=== PATIENT | female | born 1995 | race Caucasian/White ===

== ENCOUNTER → 2019-03-17 | Outpatient (CLI) | payer OTHER ==
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
== END | disposition home or self-care (01) ==
LOC: CT 10:14
PROVIDERS: ATTEND Physician Assistant
DX: T14.90XA Injury, unspecified, initial encounter (principal); R51 Headache; R42 Dizziness and giddiness; V89.2XXA Person injured in unspecified motor-vehicle accident, traffic, initial encounter; Y93.89 Activity, other specified; Y92.488 Other paved roadways as the place of occurrence of the external cause; Y99.8 Other external cause status
CPT/HCPCS: 70450

== ENCOUNTER 2019-08-23 15:07 | Emergency (ER) | payer OTHER ==
[~2019-08-23] VITALS: Ht 170.2 cm; Wt 83.5 kg
[2019-08-23] MEDS ORDERED: IV NORMAL SALINE 1,000ML 1,000 ML IV ONE (15:45)
[2019-08-23] MEDS ORDERED: ONDANSETRON PF 4 MG/2 ML VIAL. IVP ONE (16:00)
[2019-08-23 16:25] LABS: BASO # 0.1 x10^3/uL (0.0-0.2); BASO % 1 % (0-3); EOS # 0.1 x10^3/uL (0.0-0.7); EOS % 1 % (0-3); HEMATOCRIT 42.3 % (36.0-47.0); HEMOGLOBIN 14.2 g/dL (12.0-15.5); LYMPH # 2.5 x10^3/uL (1.0-4.8); LYMPH % 29 % (24-48); MEAN CORPUSCULAR HEMOGLOBIN 29 pg (25-35); MEAN CORPUSCULAR HGB CONC 34 g/dL (31-37); MEAN CORPUSCULAR VOLUME 86 fL (79-100); MONO # 0.6 x10^3/uL (0.0-1.1); MONO % 7 % (0-9); NEUT # 5.2 x10^3uL (1.8-7.7); NEUT % 62 % (31-73); PLATELET COUNT 226 x10^3/uL (140-400); RED CELL DISTRIBUTION WIDTH 13.3 % (11.5-14.5); WHITE BLOOD COUNT 8.5 x10^3/uL (4.0-11.0)
--- NOTE | 2019-08-23 16:29 | PHYS DOC ---
Past History Past Medical History: No Pertinent History Past Surgical History: Appendectomy, Cholecystectomy, Tonsillectomy Smoking: Cigarettes Alcohol Use: None Drug Use: None Adult General Chief Complaint Chief Complaint: DIZZY/LIGHT HEADED HPI HPI 23-year-old female presents with one-day history of dizziness, headache, and nausea with associated sinus pressure. Patient reports now with some right arm "funny feeling ". Denies trauma. Denies fever or chills. Patient reports she thinks she is a few weeks . Denies taking any medication prior to arrival. Review of Systems Review of Systems Constitutional: Denies fever or chills Eyes: Denies redness or eye pain HENT: Denies nasal congestion or sore throat Respiratory: Denies cough or shortness of breath Cardiovascular: Denies chest pain or palpitations GI: Denies abdominal pain or vomiting; reports nausea : Denies dysuria or hematuria Musculoskeletal: Denies back pain or joint pain Integument: Denies rash or skin lesions Neurologic: Reports headache and dizziness; denies focal weakness or sensory changes Complete systems were reviewed and found to be within normal limits, except as documented in this note. Current Medications Current Medications Current Medications Medications (Trade) Dose Ordered Sig/Liseth Start Time Stop Time Status Last Admin Dose Admin Ondansetron HCl (Zofran) 4 mg 1X ONCE 08/23/19 16:00 08/23/19 16:01 DC 08/23/19 16:00 4 MG Sodium Chloride 1,000 ml @ 1,000 mls/hr 1X ONCE 08/23/19 15:45 08/23/19 16:44 08/23/19 15:45 1,000 MLS/HR Allergies Allergies Allergies Coded Allergies Type Severity Reaction Last Updated Verified No Known Drug Allergies 08/23/19 No Physical Exam Physical Exam Constitutional: Well developed, well nourished, no acute distress, non-toxic appearance HENT: Normocephalic, atraumatic, oropharynx moist Eyes: PERRL, EOMI, conjunctiva normal, no discharge, no nystagmus Neck: Normal range of motion, no midline tenderness, supple Cardiovascular: Heart rate normal, regular rhythm Lungs & Thorax: Bilateral breath sounds clear to auscultation, no wheezing Abdomen: Soft, no tenderness Skin: Warm, dry, no erythema, no rash Extremities: No tenderness, ROM intact, no edema Neurologic: Alert and oriented X 3, normal motor function, normal sensory function, no focal deficits noted Psychologic: Affect normal, judgement normal Current Patient Data Vital Signs Vital Signs Date Time Temp Pulse Resp B/P (MAP) Pulse Ox O2 Delivery O2 Flow Rate FiO2 08/23/19 15:21 98.2 80 16 98 Room Air Lab Results Laboratory Tests Test 08/23/19 15:45 POC Urine HCG, Qualitative hcg negative (Negative) EKG EKG @1604 NSR at 75bpm, NO ST elevation, QRS 100ms, QT/QTc 384/431ms Radiology/Procedures Radiology/Procedures [] Course & Med Decision Making Course & Med Decision Making Pertinent Lab studies reviewed. (See chart for details) Neurologically intact patient presents with one-day history of headache with associated nausea and sinus pressure. No trauma. Patient ate febrile. No meningeal signs appreciated. Patient reports concern she might be a "few weeks ". Urine negative. Beta hCG less than 1. Labs obtained and posted to chart. IV fluid hydration provided. EKG stable. Patient stable for discharge with outpatient follow-up with PCP. Discussed findings and plan with patient and family, who acknowledge understanding and agreement. Dragon Disclaimer Dragon Disclaimer This electronic medical record was generated, in whole or in part, using a voice recognition dictation system. Departure Departure: Impression: Primary Impression: Dizziness Additional Impression: Headache Disposition: 01 HOME, SELF-CARE Condition: STABLE Referrals: JENNI WEISS MD (PCP) Patient Instructions: Dizziness, [id number], General Headache Without Cause, Palpitations, Zzit-tp-[id number] Scripts Butalb/Acetaminophen/Caffeine ([id number] 50-325-40) 1 Each Tablet 1 EACH PO Q6HRS PRN for HEADACHE, #14 TAB Prov: ANTONY PHILLIPS DO 08/23/19 Problem Qualifiers Additional Impression: Headache Headache type: unspecified Headache chronicity pattern: acute headache Intractability: not intractable Qualified Codes: R51 - Headache ANTONY PHILLIPS DO Aug 23, 2019 16:29
[2019-08-23 16:34] LABS: BACTERIA,URINE FEW /HPF (0-FEW); BILIRUBIN,URINE NEG (NEG); CLARITY,URINE CLEAR; COLOR,URINE AMBER; GLUCOSE,URINE NEG (NEG); NITRITE,URINE NEG (NEG); RBC,URINE 0 /HPF (0-2); SQUAMOUS EPITHELIAL CELL,UR OCC /LPF; UROBILINOGEN,URINE 0.2 mg/dL (0.2 mg/dL)
[2019-08-23 16:48] LABS: ALBUMIN 4.1 g/dL (3.4-5.0); ALBUMIN/GLOBULIN RATIO 1.1 (1.0-1.7); CALCIUM 9.1 mg/dL (8.5-10.1); CREATININE 0.8 mg/dL (0.6-1.0); GFR 89.7; POTASSIUM 3.6 mmol/L (3.5-5.1); TOTAL BILIRUBIN 0.5 mg/dL (0.2-1.0)
[2019-08-23 16:49] VITALS: BP 113/60
[2019-08-23] MEDS ORDERED: BUTA1TAB23 PO (17:17)
--- NOTE | 2019-08-24 01:56 | EKG ---
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
== END 2019-08-23 17:21 | disposition home or self-care (01) ==
LOC: ER 15:07
DX: R51 Headache (principal); R42 Dizziness and giddiness
CPT/HCPCS: 36415; 80053; 81001; 81025; 83735; 84702; 85025; 93005; 96361; 96374; 99285; J2405; J7030

== ENCOUNTER 2020-05-31 09:56 | Emergency (ER) | payer OTHER ==
[~2020-05-31] VITALS: Ht 170.2 cm; Wt 84.7 kg
[~2020-05-31 09:56] MED LIST: BUTA1TAB23 PO
[2020-05-31] MEDS ORDERED: IV NORMAL SALINE 1,000ML 1,000 ML IV SCH (09:58)
[2020-05-31 10:29] LABS: BASO % 1 % (0-3); EOS % 1 % (0-3); HEMATOCRIT 41.8 % (36.0-47.0); HEMOGLOBIN 14.4 g/dL (12.0-15.5); LYMPH # 1.9 x10^3/uL (1.0-4.8); LYMPH % 38 % (24-48); MEAN CORPUSCULAR HEMOGLOBIN 30 pg (25-35); MEAN CORPUSCULAR HGB CONC 35 g/dL (31-37); MEAN CORPUSCULAR VOLUME 86 fL (79-100); MONO # 0.5 x10^3/uL (0.0-1.1); MONO % 10 % (0-9); NEUT # 2.5 x10^3uL (1.8-7.7); NEUT % 50 % (31-73); PLATELET COUNT 226 x10^3/uL (140-400); RED BLOOD COUNT 4.84 x10^6/uL (3.50-5.40)
--- NOTE | 2020-05-31 10:29 | PHYS DOC ---
Past History Past Medical History: Hypothyroid Past Surgical History: Appendectomy, Cholecystectomy, Tonsillectomy Smoking: Cigarettes Alcohol Use: None Drug Use: None General Adult EDM: Chief Complaint: CHEST PAIN HPI: HPI: 24-year-old female presents via EMS with chest pain and generalized weakness. 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 She then had some left upper abdomen that has central chest discomfort that she describes as a pinching sensation. It was mild in intensity. It has improved. Her biggest concern is the profound fatigue that she was feeling. This has improved somewhat at this time. She is not diabetic. She did not eat breakfast, but she normally does not eat breakfast. She denies fever chills. No recent changes in medications. They are monitoring her thyroid as she has nodules. She does not currently take thyroid medication. Review of Systems: Review of Systems: Constitutional: Fatigue. Denies fever or chills Eyes: Denies change in visual acuity HENT: Denies nasal congestion or sore throat Respiratory: Denies cough or shortness of breath Cardiovascular: Chest pain GI: Denies abdominal pain, nausea, vomiting, bloody stools or diarrhea : Denies dysuria Musculoskeletal: Denies back pain or joint pain Integument: Denies rash Neurologic: Denies headache, focal weakness or sensory changes Endocrine: Denies polyuria or polydipsia Lymphatic: Denies swollen glands Psychiatric: Denies depression or anxiety Heart Score: HEART Score for Chest Pain: HEART Score for Chest Pain Response (Comments) Value History Slighlty/Non-Suspicious 0 ECG Normal 0 Age < 45 0 Risk Factors No Risk Factors 0 Troponin < Normal Limit 0 Total 0 Risk Factors: Risk Factors: DM, Current or recent (<one month) smoker, HTN, HLP, family history of CAD, obesity. Risk Scores: Score 0 - 3: 2.5% MACE over next 6 weeks - Discharge Home Score 4 - 6: 20.3% MACE over next 6 weeks - Admit for Clinical Observation Score 7 - 10: 72.7% MACE over next 6 weeks - Early Invasive Strategies Current Medications: Current Meds: Current Medications Medications (Trade) Dose Ordered Sig/Liseth Start Time Stop Time Status Last Admin Dose Admin Sodium Chloride 1,000 ml @ 1,000 mls/hr Q1H 05/31/20 09:58 05/31/20 10:57 Allergies: Allergies: Allergies Coded Allergies Type Severity Reaction Last Updated Verified No Known Drug Allergies 08/23/19 No Physical Exam: PE: Constitutional: Well developed, well nourished, no acute distress, non-toxic appearance. [] HENT: Normocephalic, atraumatic, bilateral external ears normal, oropharynx moist, no oral exudates, nose normal. [] Eyes: PERRLA, EOMI, conjunctiva normal, no discharge. [] Neck: Normal range of motion, no tenderness, supple, no stridor. [] Cardiovascular: Heart rate regular rhythm, no murmur [] Lungs & Thorax: Bilateral breath sounds clear to auscultation [] Abdomen: Bowel sounds normal, soft, no tenderness, no masses, no pulsatile masses. [] Skin: Warm, dry, no erythema, no rash. [] Back: No tenderness, no CVA tenderness. [] Extremities: No tenderness, no cyanosis, no clubbing, ROM intact, no edema. [] Neurologic: Alert and oriented X 3, normal motor function, normal sensory function, no focal deficits noted. [] Psychologic: Affect normal, judgement normal, mood anxious. [] Current Patient Data: Vital Signs: Vital Signs Date Time Temp Pulse Resp B/P (MAP) Pulse Ox O2 Delivery O2 Flow Rate FiO2 05/31/20 10:00 98.1 66 20 118/72 (87) 97 Room Air EKG: EKG: [] Radiology/Procedures: Radiology/Procedures: [] Impressions: EXAM: Chest, single view. HISTORY: Chest pain. COMPARISON: None. FINDINGS: A frontal view of the chest obtained. There is no infiltrate, pleural effusion or pneumothorax. The heart is normal in size. IMPRESSION: No acute pulmonary finding. Electronically signed by: Annie Byrd MD (05/31/2020 10:24 AM) [id number] DICTATED AND SIGNED BY: ANNIE BYRD MD DATE: 05/31/20 1024 CC: FLORINDA MARTIN DO; JENNI WEISS MD ~ Course & Med Decision Making: Course & Med Decision Making Pertinent Labs and Imaging studies reviewed. (See chart for details) The patient's EKG is unremarkable. Her chest x-ray is unremarkable. Her labs are unremarkable. Her troponin is negative. Her urinalysis is negative for infection but does show some ketones. I cannot rule out thyroid dysfunction. I advised that she follow-up with her primary doctor as previously planned for this. It is also possible that she has had some transient low blood sugar. She has not been eating well lately. She has had a lot of stress. Not eating breakfast on working a somewhat physical job may have caused a drop in her blood sugar. Her levels are normal here. She is stable for discharge at this time. [] Dragon Disclaimer: Dragon Disclaimer: This electronic medical record was generated, in whole or in part, using a voice recognition dictation system. Departure Departure: Impression: Primary Impression: Chest pain Qualified Codes: R07.9 - Chest pain, unspecified Additional Impression: Fatigue Qualified Codes: R53.83 - Other fatigue Disposition: 01 HOME/RESIDENCE PRIOR TO ADM Condition: STABLE Referrals: JENNI WEISS MD (PCP) Patient Instructions: Chest Pain (Nonspecific), Coex-[id number]-[id number] Justification of Admission: Justification of Admission: Justification of Admission Dx: N/A FLORINDA MARTIN DO May 31, 2020 10:29
[2020-05-31 10:39] LABS: CALCIUM 8.8 mg/dL (8.5-10.1); GFR 68.7; POTASSIUM 3.4 mmol/L (3.5-5.1)
[2020-05-31 10:40] VITALS: BP 121/71
[2020-05-31 10:40] LABS: BARBITURATES NEG (NEG); BENZODIAZEPINES NEG (NEG); CANNABINOIDS NEG (NEG); COCAINE NEG (NEG); METHADONE NEG (NEG); OPIATES NEG (NEG); PHENCYCLIDINE NEG (NEG)
[2020-05-31 10:42] LABS: AMPHETAMINE/METHAMPHETAMINE NEG (NEG)
[2020-05-31 10:44] LABS: ALBUMIN 4.2 g/dL (3.4-5.0); ALBUMIN/GLOBULIN RATIO 1.2 (1.0-1.7); TOTAL BILIRUBIN 0.9 mg/dL (0.2-1.0); TOTAL PROTEIN 7.8 g/dL (6.4-8.2)
[2020-05-31 10:45] LABS: BACTERIA,URINE FEW /HPF (0-FEW); BILIRUBIN,URINE NEG (NEG); CLARITY,URINE HAZY; COLOR,URINE YELLOW; GLUCOSE,URINE NEG (NEG); NITRITE,URINE NEG (NEG); SQUAMOUS EPITHELIAL CELL,UR MOD /LPF
--- NOTE | 2020-05-31 17:30 | EKG ---
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
== END 2020-05-31 11:13 | disposition home or self-care (01) ==
LOC: ER 09:56
DX: R07.89 Other chest pain (principal); R53.1 Weakness; R53.83 Other fatigue; R42 Dizziness and giddiness; E03.9 Hypothyroidism, unspecified; F17.210 Nicotine dependence, cigarettes, uncomplicated
CPT/HCPCS: 36415; 71045; 80053; 80307; 81001; 84484; 85025; 93005; 96360; 99285; J7030

== ENCOUNTER 2020-07-12 12:28 | Emergency (ER) | payer OTHER ==
[~2020-07-12] VITALS: Ht 170.2 cm; Wt 79.0 kg
--- NOTE | 2020-07-12 12:45 | PHYS DOC ---
Past History Past Medical History: Hypothyroid Past Surgical History: Appendectomy, Cholecystectomy, Tonsillectomy Smoking: Cigarettes Alcohol Use: None Drug Use: None General Adult EDM: Chief Complaint: SHOULDER INJURY HPI: HPI: 24 yo F who denies any PMH presents to the ed with c/o left anterior shoulder pain that started two days ago while at work. States he reached behind her head, arm hyperextended when pain started. No prior trauma or injury to the left shoulder. Right hand dominant. No recent abx/fluoroquinolones. LMP end of June. Pain worsens with using her left arm to sit up. Hasn't taken any pain medications for it. Has been icing the shoulder. ROS: Denies associated radiculopathy, headache, midline neck pain, nausea, vomiting, diarrhea, sore throat, cough, chest pain, dyspnea, sensory or motor deficits, elbow or wrist pain, Review of Systems: Review of Systems: Constitutional: Denies fever or chills Eyes: Denies change in visual acuity HENT: Denies nasal congestion or sore throat Respiratory: Denies cough or shortness of breath Cardiovascular: Denies chest pain or edema GI: Denies abdominal pain, nausea, vomiting, or diarrhea : Denies dysuria Musculoskeletal: Denies back pain or joint pain Integument: Denies rash Neurologic: Denies headache, focal weakness or sensory changes Endocrine: Denies polyuria or polydipsia Lymphatic: Denies swollen glands Psychiatric: Denies depression or anxiety Heart Score: Risk Factors: Risk Factors: DM, Current or recent (<one month) smoker, HTN, HLP, family history of CAD, obesity. Risk Scores: Score 0 - 3: 2.5% MACE over next 6 weeks - Discharge Home Score 4 - 6: 20.3% MACE over next 6 weeks - Admit for Clinical Observation Score 7 - 10: 72.7% MACE over next 6 weeks - Early Invasive Strategies Allergies: Allergies: Allergies Coded Allergies Type Severity Reaction Last Updated Verified No Known Drug Allergies 08/23/19 No Physical Exam: PE: Constitutional: Well developed, well nourished, no acute distress, non-toxic appearance. [] HENT: Normocephalic, atraumatic, bilateral external ears normal, Eyes:EOMI, conjunctiva normal, no discharge. [] Neck: Normal range of motion, no tenderness, supple, no stridor. [] Cardiovascular:Heart rate regular rhythm, no murmur [] Lungs & Thorax: Bilateral breath sounds clear to auscultation [] Abdomen: Bowel sounds normal, soft, no tenderness, no masses, no pulsatile masses. [] Skin: Warm, dry, no erythema, no rash. [] Back: No tenderness, no CVA tenderness. [] Extremities: Nttp over left ac joint-no pain over humeral head or biceps tendon insertion, 5/5 UE ms, equal radial pulses, no cyanosis, no clubbing, ROM intact- pain worsens w/extension/abduction, no edema. [] Neurologic: Alert and oriented X 3, normal motor function, normal sensory function, no focal deficits noted. [] Psychologic: Affect normal, judgement normal, mood normal. [] EKG: EKG: [] Radiology/Procedures: Radiology/Procedures: IMAGING REPORT Signed PATIENT: ROMAN ALY ACCOUNT: [id number] : 1995 LOCATION: ER AGE: 24 SEX: F EXAM STATUS: REG ER ORD. PHYSICIAN: SHALOM ROWLAND DO REASON: left shoudler PROCEDURE: SHOULDER 2+V LEFT Left shoulder AP and scapular Y x-rays 4 views HISTORY: Left shoulder pain. FINDINGS: Mid thoracic scoliosis. No fracture. No dislocation. No arthritic change. Soft tissues are unremarkable. IMPRESSION: No acute osseous injury. Electronically signed by: Rafael Feng MD (07/12/2020 1:14 PM) [id number] DICTATED AND SIGNED BY: RAFAEL FENG MD DATE: 07/12/20 1314 CC: JENNI WEISS MD; SHALOM ROWLAND DO ~ Course & Med Decision Making: Course & Med Decision Making Pertinent Labs and Imaging studies reviewed. (See chart for details) Concern for left shoulder pain over AC joint, suspect MSK injury. Cannot exclude rotator cuff injury/ligament/tendon injury (no repetitive trauma with normal range of motion). Encouraged urgent outpatient follow-up with PMD and Ortho. Life-threatening processes were considered but are low suspicion at this time, given history and physical exam. Pt was educated on all prescription medications and adverse effects. All patient's questions were answered and pt was stable at time of discharge. Differential includes fracture, dislocation, laceration, osteomyelitis, compartment syndrome, neurovascular injury or deficit, infection (abscess, cellulitis, septic arthritis), tendon or ligament injury. I spoken with the patient and her caregivers. I explained the patient's condition, diagnoses and treatment plan based on the information available to me at this time. I have answered the patient and her caregiver's questions and addressed any concerns. The patient and her caregivers have a good understanding of patient's diagnosis, condition and treatment plan as can be expected at this point. Vital signs have been stable. Patient's condition is stable and appropriate for discharge from the emergency department. Patient will pursue further outpatient evaluation with primary care physician or other designated or consulting physician as outlined in the discharge instructions. The patient and/or caregivers are agreeable to this plan of care and follow-up instructions have been explained in detail. The patient and/or caregivers have received these instructions in written form and have expressed an understanding of the discharge instructions. The patient and/or caregivers are aware that any significant change of condition or worsening of symptoms should prompt immediate return to this or the closest emergency department or call to 911. Dutch Disclaimer: Dutch Disclaimer: This electronic medical record was generated, in whole or in part, using a voice recognition dictation system. Departure Departure: Impression: Primary Impression: Left anterior shoulder pain Additional Impression: Pain in left acromioclavicular joint Disposition: HOME/RESIDENCE PRIOR TO ADM Condition: STABLE Referrals: JENNI WEISS MD (PCP) Patient Instructions: Musculoskeletal Pain, Shoulder Pain Additional Instructions: Devyn Burrell MD [facility] Address: [address] [place] [address] Scripts Ibuprofen (IBUPROFEN) 600 Mg Tablet 600 MG PO Q6HRS for headache, #20 TAB Prov: SHALOM ROWLAND DO 07/12/20 Justification of Admission: Justification of Admission: Justification of Admission Dx: N/A SHALOM ROWLAND DO Jul 12, 2020 12:45
--- NOTE | 2020-07-12 13:16 | RAD ---
Left shoulder AP and scapular Y x-rays 4 views HISTORY: Left shoulder pain. FINDINGS: Mid thoracic scoliosis. No fracture. No dislocation. No arthritic change. Soft tissues are unremarkable. IMPRESSION: No acute osseous injury. Electronically signed by: Vinny Feng MD (07/12/2020 1:14 PM) [id number]
[2020-07-12] MEDS ORDERED: IBUP600T16 PO (13:39)
[2020-07-12 14:07] VITALS: BP 118/64
== END 2020-07-12 13:45 | disposition home or self-care (01) ==
LOC: ER 12:28
DX: M25.512 Pain in left shoulder (principal); I73.81 Erythromelalgia; E03.9 Hypothyroidism, unspecified; F17.210 Nicotine dependence, cigarettes, uncomplicated; X50.9XXA Other and unspecified overexertion or strenuous movements or postures, initial encounter; Y93.89 Activity, other specified; Y92.89 Other specified places as the place of occurrence of the external cause; Y99.8 Other external cause status
CPT/HCPCS: 73030; 81025; 99283

== ENCOUNTER 2021-03-07 19:56 | Emergency (ER) | payer SELFPAY ==
[~2021-03-07] VITALS: Ht 170.2 cm; Wt 81.0 kg
[~2021-03-07 19:56] MED LIST changes: +IBUP600T16 PO
--- NOTE | 2021-03-07 20:15 | PHYS DOC ---
Past History Past Medical History: No Pertinent History Past Surgical History: Appendectomy, Cholecystectomy, Tonsillectomy Smoking: Cigarettes Alcohol Use: None Drug Use: None General Adult HPI: HPI: "I worried I may have toxic shock... I am ready to start my period.. and a tampon fell out... it must have been in a month..." Patient is a 25 year old female who presents with above hx and complaints of retained tampon from last menstruation cycle. Patient has no specific history of fever or chills. Has had some nausea vomiting and diarrhea in the past week. Patient became very concerned that she may have developed toxic shock from the retained tampon in excess of the month. No history of MSRA. No history of previous staph infections. No history of immunosuppression. No history of STDs. No history of recent travel outside [place] area. Patient normally healthy. Patient up-to-date with vaccinations. Patient only follows with Dr. Jenni Weiss. Review of Systems: Review of Systems: Constitutional: Denies fever or chills Eyes: Denies change in visual acuity HENT: Denies nasal congestion or sore throat Respiratory: Denies cough or shortness of breath Cardiovascular: Denies chest pain or edema GI: History of abdomen discomfort, nausea, vomiting, and diarrhea . No history of bloody diarrhea. History of a retained tampon more than a month. : Denies dysuria Musculoskeletal: Denies back pain or joint pain Integument: Denies rash Neurologic: Denies headache, focal weakness or sensory changes Endocrine: Denies polyuria or polydipsia Lymphatic: Denies swollen glands Psychiatric: Denies depression or anxiety Family History: Family History: Noncontributory Current Medications: Current Meds: See nursing for home meds Allergies: Allergies: Allergies Coded Allergies Type Severity Reaction Last Updated Verified No Known Drug Allergies 08/23/19 No Physical Exam: PE: Constitutional: Well developed, well nourished, no acute distress, non-toxic appearance. [] HENT: Normocephalic, atraumatic, bilateral external ears normal, oropharynx dry, no oral exudates, nose normal. [] Eyes: PERRLA, EOMI, conjunctiva normal, no discharge. [] Neck: Normal range of motion, no tenderness, supple, no stridor. [] Cardiovascular:Heart rate regular rhythm, no murmur [] Lungs & Thorax: Bilateral breath sounds equal apex auscultation [] Abdomen: Bowel sounds hyperactive, soft, no tenderness, no masses, no pulsatile masses. Rectal exam no gross blood. Hard stool in vault. Vaginal exam shows no other retained objects. Does appear to be starting period. No cervical motion tenderness. No rebound pain. Old surgical scars. Skin: Warm, dry, no erythema, no rash. [] Back: No tenderness, no CVA tenderness. [] Extremities: No tenderness, no cyanosis, no clubbing, ROM intact, no edema. [] Neurologic: Alert and oriented X 3, normal motor function, normal sensory function, no focal deficits noted. [] Psychologic: Affect anxious, judgement normal, mood normal. [] EKG: EKG: [] Radiology/Procedures: Radiology/Procedures: [] Heart Score: C/O Chest Pain: N/A Risk Factors: Risk Factors: DM, Current or recent (<one month) smoker, HTN, HLP, family hist ory of CAD, obesity. Risk Scores: Score 0 - 3: 2.5% MACE over next 6 weeks - Discharge Home Score 4 - 6: 20.3% MACE over next 6 weeks - Admit for Clinical Observation Score 7 - 10: 72.7% MACE over next 6 weeks - Early Invasive Strategies Course & Med Decision Making: Course & Med Decision Making Pertinent Labs and Imaging studies reviewed. (See chart for details) Recommend patient take Tylenol and ibuprofen for any discomfort. Patient recommended to push fluids. Patient recommended to be on a clear fluid diet for the next couple days for bowel rest. May take eyav-pvv-ctcnume Pepto-Bismol for episodes of diarrhea. Patient follow-up pending cultures. Patient return if any concerns. Feel the risk for toxic shock retained tampon is relatively low with a normal white count, no fever, and minimal symptoms. Must follow-up cultures. Impression: 1. History retained vaginal tampon >1 month 2. Hx Acute Gastroenteritis [] Dragon Disclaimer: Dragon Disclaimer: This electronic medical record was generated, in whole or in part, using a voice recognition dictation system. Departure Departure: Referrals: JENNI WEISS MD (PCP) Dutch Disclaimer This chart was dictated in whole or in part using Voice Recognition software in a busy, high-work load, and often noisy Emergency Department environment. It may contain unintended and wholly unrecognized errors or omissions. GAGAN NOWAK MD March 07, 2021 20:15
[2021-03-07] MEDS ORDERED: IV RINGERS SOLUTION,LACTATED 1,000 ML IV SCH (20:30)
[2021-03-07 20:35] LABS: BASO # 0.1 x10^3/uL (0.0-0.2); BASO % 1 % (0-3); CALCIUM 8.7 mg/dL (8.5-10.1); EOS # 0.1 x10^3/uL (0.0-0.7); EOS % 1 % (0-3); GFR 68.1; HEMATOCRIT 42.6 % (36.0-47.0); HEMOGLOBIN 14.4 g/dL (12.0-15.5); LYMPH # 2.3 x10^3/uL (1.0-4.8); LYMPH % 25 % (24-48); MEAN CORPUSCULAR HEMOGLOBIN 30 pg (25-35); MEAN CORPUSCULAR HGB CONC 34 g/dL (31-37); MEAN CORPUSCULAR VOLUME 89 fL (79-100); MONO # 0.6 x10^3/uL (0.0-1.1); MONO % 7 % (0-9); NEUT # 6.1 x10^3uL (1.8-7.7); NEUT % 66 % (31-73); PLATELET COUNT 229 x10^3/uL (140-400); POTASSIUM 3.5 mmol/L (3.5-5.1); PREG TEST PT QUAL NEGATIVE (NEG); RED BLOOD COUNT 4.82 x10^6/uL (3.50-5.40); RED CELL DISTRIBUTION WIDTH 12.9 % (11.5-14.5); WHITE BLOOD COUNT 9.2 x10^3/uL (4.0-11.0)
[2021-03-07 20:41] LABS: ALBUMIN 3.9 g/dL (3.4-5.0); DIRECT BILIRUBIN 0.1 mg/dL (0.0-0.2); TOTAL BILIRUBIN 0.4 mg/dL (0.2-1.0); TOTAL PROTEIN 7.4 g/dL (6.4-8.2)
[2021-03-07 21:07] LABS: BARBITURATES NEG (NEG); BENZODIAZEPINES NEG (NEG); CANNABINOIDS NEG (NEG); COCAINE NEG (NEG); METHADONE NEG (NEG); OPIATES NEG (NEG); PHENCYCLIDINE NEG (NEG)
[2021-03-07 21:08] LABS: AMPHETAMINE/METHAMPHETAMINE NEG (NEG)
[2021-03-07] MEDS ORDERED: KETOROLAC 30 MG/ML VIAL. IVP ONE (21:30)
[2021-03-07] MEDS ORDERED: ONDANSETRON PF 4 MG/2 ML VIAL. IVP ONE (21:30)
[2021-03-07 22:12] VITALS: BP 124/64
[2021-03-09 18:10] LABS: CHLAMYDIA PROBE Negative (Negative)
== END 2021-03-07 22:12 | disposition home or self-care (01) ==
LOC: ER 19:56
DX: T19.2XXD Foreign body in vulva and vagina, subsequent encounter (principal); Z87.19 Personal history of other diseases of the digestive system
CPT/HCPCS: 80048; 80076; 80307; 81025; 82550; 84703; 85025; 87040; 87491; 87591; 96361; 96374; 96375; 99284; J1885; J2405; J7120; Q0111

== ENCOUNTER 2021-04-25 10:28 | Emergency (ER) | payer SELFPAY ==
[~2021-04-25] VITALS: Ht 170.2 cm; Wt 79.7 kg
[2021-04-25 10:30] VITALS: BP 154/64
--- NOTE | 2021-04-25 11:31 | PHYS DOC ---
Past History Past Medical History: Hypothyroid, Other Additional Past Medical Histor: HEART PALPATIONS Past Surgical History: Appendectomy, Cholecystectomy, Tonsillectomy Smoking: Cigarettes Alcohol Use: None Drug Use: None General Adult EDM: Chief Complaint: VAGINAL PROBLEM HPI: HPI: 25-year-old female presents with vaginal pain and discharge. She states that it [place] and itches. She thought it was similar to a yeast infection that she had when she was so she tried Monistat with without relief. She only used 1 dose. She has had white and yellow thick discharge. She did have unprotected sex a couple weeks ago. She denies abdominal pain. She has no other complaints at this time. Review of Systems: Review of Systems: Constitutional: Denies fever or chills Eyes: Denies change in visual acuity HENT: Denies nasal congestion or sore throat Respiratory: Denies cough or shortness of breath Cardiovascular: Denies chest pain or edema GI: Denies abdominal pain, nausea, vomiting, bloody stools or diarrhea : Vaginal itching and burning, increased discharge Musculoskeletal: Denies back pain or joint pain Integument: Denies rash Neurologic: Denies headache, focal weakness or sensory changes Endocrine: Denies polyuria or polydipsia Lymphatic: Denies swollen glands Psychiatric: Denies depression or anxiety Allergies: Allergies: Allergies Coded Allergies Type Severity Reaction Last Updated Verified No Known Drug Allergies 04/25/21 No Physical Exam: PE: Constitutional: Well developed, well nourished, no acute distress, non-toxic appearance. [] HENT: Normocephalic, atraumatic, bilateral external ears normal, oropharynx moist, no oral exudates, nose normal. [] Eyes: PERRLA, EOMI, conjunctiva normal, no discharge. [] Neck: Normal range of motion, no tenderness, supple, no stridor. [] Cardiovascular:Heart rate regular rhythm, no murmur [] Lungs & Thorax: Bilateral breath sounds clear to auscultation [] Abdomen: Bowel sounds normal, soft, no tenderness, no masses, no pulsatile masses. [] Skin: Warm, dry, no erythema, no rash. [] Back: No tenderness, no CVA tenderness. [] Extremities: No tenderness, no cyanosis, no clubbing, ROM intact, no edema. [] Neurologic: Alert and oriented X 3, normal motor function, normal sensory function, no focal deficits noted. [] Psychologic: Affect normal, judgement normal, mood normal. : Shaved pubic hair, normal external genitalia, copious white and yellow discharge with exam. Erythema of the vaginal wall. [] Current Patient Data: Labs: Laboratory Tests Test 04/25/21 11:12 POC Urine HCG, Qualitative hcg negative (Negative) Vital Signs: Vital Signs Date Time Temp Pulse Resp B/P (MAP) Pulse Ox O2 Delivery O2 Flow Rate FiO2 04/25/21 10:30 98.2 92 16 154/64 (94) 99 Room Air EKG: EKG: [] Radiology/Procedures: Radiology/Procedures: [] Heart Score: C/O Chest Pain: N/A Risk Factors: Risk Factors: DM, Current or recent (<one month) smoker, HTN, HLP, family history of CAD, obesity. Risk Scores: Score 0 - 3: 2.5% MACE over next 6 weeks - Discharge Home Score 4 - 6: 20.3% MACE over next 6 weeks - Admit for Clinical Observation Score 7 - 10: 72.7% MACE over next 6 weeks - Early Invasive Strategies Course & Med Decision Making: Course & Med Decision Making Pertinent Labs and Imaging studies reviewed. (See chart for details) The patient's pelvic exam does reveal yeast infection. I will treat her with 200 mg of Diflucan in the ED. She is stable for discharge at this time. [] Dutch Disclaimer: Dutch Disclaimer: This electronic medical record was generated, in whole or in part, using a voice recognition dictation system. Departure Departure: Impression: Primary Impression: Vaginal yeast infection Disposition: HOME / SELF CARE / HOMELESS Condition: STABLE Referrals: PCP,JACQUELINE (PCP) Patient Instructions: Vaginitis, [id number] FLORINDA MARTIN DO Apr 25, 2021 11:31
[2021-04-25 11:33] LABS: BILIRUBIN,URINE NEG (NEG); CLARITY,URINE CLOUDY; COLOR,URINE YELLOW; GLUCOSE,URINE NEG (NEG); NITRITE,URINE NEG (NEG)
[2021-04-25 11:34] LABS: BACTERIA,URINE FEW /HPF (0-FEW); SQUAMOUS EPITHELIAL CELL,UR FEW /LPF
[2021-04-25] MEDS ORDERED: FLUCONAZOLE 100 MG TABLET. PO ONE (13:15)
[2021-04-27 20:07] LABS: CHLAMYDIA PROBE Negative (Negative)
== END 2021-04-25 13:30 | disposition home or self-care (01) ==
LOC: ER 10:28
DX: B37.3 Candidiasis of vulva and vagina (principal); F17.210 Nicotine dependence, cigarettes, uncomplicated; Z90.49 Acquired absence of other specified parts of digestive tract
CPT/HCPCS: 81001; 81025; 87086; 87491; 87591; 99283; Q0111

== ENCOUNTER 2021-05-25 10:53 | Emergency (ER) | payer SELFPAY ==
[~2021-05-25] VITALS: Ht 170.2 cm; Wt 77.9 kg
--- NOTE | 2021-05-25 11:19 | PHYS DOC ---
Past History Past Medical History: Hypothyroid, Other Additional Past Medical Histor: HEART PALPATIONS Past Surgical History: Appendectomy, Cholecystectomy, Tonsillectomy Smoking: Cigarettes Alcohol Use: None Drug Use: None General Adult EDM: Chief Complaint: CHEST PAIN HPI: HPI: 25-year-old female presents with chest pain. 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 She also felt like her heart rate accelerated. She checked her watch and her heart rate all into the 115's then dropped down to the mid 50s. She finds unusual and concerning. The chest pain is still there and it is moderate in intensity. She describes as a heaviness. Her heart rate has moderated at this time. She has not felt any other rapid heartbeats. She already sees a internet architect for arrhythmia. She denies fever or chills. She denies shortness of breath or diaphoresis. Review of Systems: Review of Systems: Constitutional: Denies fever or chills Eyes: Denies change in visual acuity HENT: Denies nasal congestion or sore throat Respiratory: Denies cough or shortness of breath Cardiovascular: Chest pain GI: Denies abdominal pain, nausea, vomiting, bloody stools or diarrhea : Denies dysuria Musculoskeletal: Denies back pain or joint pain Integument: Denies rash Neurologic: Denies headache, focal weakness or sensory changes Endocrine: Denies polyuria or polydipsia Lymphatic: Denies swollen glands Psychiatric: Denies depression or anxiety Allergies: Allergies: Allergies Coded Allergies Type Severity Reaction Last Updated Verified No Known Drug Allergies 04/25/21 No Physical Exam: PE: Constitutional: Well developed, well nourished, no acute distress, non-toxic appearance. [] HENT: Normocephalic, atraumatic, bilateral external ears normal, oropharynx moist, no oral exudates, nose normal. [] Eyes: PERRLA, EOMI, conjunctiva normal, no discharge. [] Neck: Normal range of motion, no tenderness, supple, no stridor. [] Cardiovascular: Heart rate regular rhythm, no murmur [] Lungs & Thorax: Bilateral breath sounds clear to auscultation [] Abdomen: Bowel sounds normal, soft, no tenderness, no masses, no pulsatile masses. [] Skin: Warm, dry, no erythema, no rash. [] Back: No tenderness, no CVA tenderness. [] Extremities: No tenderness, no cyanosis, no clubbing, ROM intact, no edema. [] Neurologic: Alert and oriented X 3, normal motor function, normal sensory function, no focal deficits noted. [] Psychologic: Affect normal, judgement normal, mood anxious. [] Current Patient Data: Vital Signs: Vital Signs Date Time Temp Pulse Resp B/P (MAP) Pulse Ox O2 Delivery O2 Flow Rate FiO2 05/25/21 11:04 98.3 75 16 131/72 100 Room Air EKG: EKG: Sinus rhythm, rate 73, normal axis, no ST elevation or depression. [] Radiology/Procedures: Radiology/Procedures: [] Heart Score: C/O Chest Pain: Yes HEART Score for Chest Pain: HEART Score for Chest Pain Response (Comments) Value History Slighlty/Non-Suspicious 0 ECG Normal 0 Age < 45 0 Risk Factors 1 or 2 Risk Factors 1 Troponin < Normal Limit 0 Total 1 Risk Factors: Risk Factors: DM, Current or recent (<one month) smoker, HTN, HLP, family history of CAD, obesity. Risk Scores: Score 0 - 3: 2.5% MACE over next 6 weeks - Discharge Home Score 4 - 6: 20.3% MACE over next 6 weeks - Admit for Clinical Observation Score 7 - 10: 72.7% MACE over next 6 weeks - Early Invasive Strategies Course & Med Decision Making: Course & Med Decision Making Pertinent Labs and Imaging studies reviewed. (See chart for details) The patient's EKG is unremarkable. She shows no significant abnormalities on the monitor. Chest x-ray is negative for acute findings. Troponin is negative. Other labs are unremarkable. Urinalysis is negative for infection. This does not appear to be a cardiopulmonary event. She is stable for discharge at this time. [] Dragon Disclaimer: Dragon Disclaimer: This electronic medical record was generated, in whole or in part, using a voice recognition dictation system. Departure Departure: Impression: Primary Impression: Chest pain Qualified Codes: R07.9 - Chest pain, unspecified Disposition: HOME / SELF CARE / HOMELESS Condition: STABLE Referrals: PCP,NO (PCP) Patient Instructions: Chest Pain (Nonspecific), [id number] FLORINDA MARTIN DO May 25, 2021 11:19
--- NOTE | 2021-05-25 11:43 | EKG ---
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
--- NOTE | 2021-05-25 11:52 | RAD ---
INDICATION: Reason: CP / Spl. Instructions: / History: COMPARISON: May 31, 2020 FINDINGS: Single view of chest obtained. No focal airspace consolidation. Cardiomediastinal contour unremarkable. No acute osseous abnormality. IMPRESSION: * No focal airspace consolidation or edema. Electronically signed by: Law Mccoy MD (05/25/2021 11:50 AM) [id number]
[2021-05-25 12:04] LABS: BASO # 0.1 x10^3/uL (0.0-0.2); BASO % 1 % (0-3); EOS % 1 % (0-3); HEMATOCRIT 40.4 % (36.0-47.0); HEMOGLOBIN 13.6 g/dL (12.0-15.5); LYMPH # 2.3 x10^3/uL (1.0-4.8); LYMPH % 30 % (24-48); MEAN CORPUSCULAR HEMOGLOBIN 30 pg (25-35); MEAN CORPUSCULAR HGB CONC 34 g/dL (31-37); MEAN CORPUSCULAR VOLUME 88 fL (79-100); MONO # 0.8 x10^3/uL (0.0-1.1); MONO % 10 % (0-9); NEUT # 4.6 x10^3uL (1.8-7.7); NEUT % 59 % (31-73); PLATELET COUNT 199 x10^3/uL (140-400); RED BLOOD COUNT 4.61 x10^6/uL (3.50-5.40); RED CELL DISTRIBUTION WIDTH 13.6 % (11.5-14.5); WHITE BLOOD COUNT 7.8 x10^3/uL (4.0-11.0)
[2021-05-25 12:08] LABS: BARBITURATES NEG (NEG); BENZODIAZEPINES NEG (NEG); CANNABINOIDS NEG (NEG); COCAINE NEG (NEG); METHADONE NEG (NEG); OPIATES NEG (NEG); PHENCYCLIDINE NEG (NEG)
[2021-05-25 12:09] LABS: AMPHETAMINE/METHAMPHETAMINE NEG (NEG)
[2021-05-25 12:16] LABS: CALCIUM 8.8 mg/dL (8.5-10.1); CREATININE 0.8 mg/dL (0.6-1.0); GFR 88.1; POTASSIUM 3.4 mmol/L (3.5-5.1)
[2021-05-25 12:19] LABS: BILIRUBIN,URINE NEG (NEG); CLARITY,URINE CLEAR; COLOR,URINE YELLOW; GLUCOSE,URINE NEG (NEG); NITRITE,URINE NEG (NEG); RBC,URINE 0 /HPF (0-2); UROBILINOGEN,URINE 0.2 mg/dL (0.2 mg/dL); WBC,URINE OCC /HPF (0-4)
[2021-05-25 12:20] LABS: BACTERIA,URINE FEW /HPF (0-FEW); SQUAMOUS EPITHELIAL CELL,UR MOD /LPF
[2021-05-25 12:21] LABS: ALBUMIN 4.2 g/dL (3.4-5.0); ALBUMIN/GLOBULIN RATIO 1.6 (1.0-1.7); TOTAL BILIRUBIN 0.5 mg/dL (0.2-1.0); TOTAL PROTEIN 6.9 g/dL (6.4-8.2)
[2021-05-25 13:27] VITALS: BP 120/66
== END 2021-05-25 14:17 | disposition home or self-care (01) ==
LOC: ER 10:53
DX: R07.89 Other chest pain (principal); E03.9 Hypothyroidism, unspecified; F17.210 Nicotine dependence, cigarettes, uncomplicated
CPT/HCPCS: 36415; 71045; 80053; 80307; 81001; 81025; 84443; 84484; 85025; 93005; 99285

== ENCOUNTER 2021-06-08 16:44 | Emergency (ER) | payer SELFPAY ==
[~2021-06-08] VITALS: Ht 170.2 cm; Wt 77.3 kg
[2021-06-08 17:31] VITALS: BP 108/61
--- NOTE | 2021-06-08 18:16 | RAD ---
INDICATION: Reason: Right foot and ankle pain, hit on couch / Spl. Instructions: / History: COMPARISON: None. IMPRESSION: Right ankle: 3 views obtained. Small ossific fragment seen adjacent to the medial malleolus which cou ld be from a small fracture fragment of indeterminate age. Would correlate with symptoms at this site . No evidence of dislocation. Right foot: 3 views obtained. There is some degenerative changes including hypertrophic changes at th e first metatarsophalangeal joint with adjacent edema to the soft tissues. No definite additional fra cture site. Electronically signed by: Law Mccoy MD (06/08/2021 6:13 PM) [id number]
[2021-06-08] MEDS ORDERED: ACETAMINOPHEN 500 MG TABLET PO ONE (18:45)
[2021-06-08] MEDS ORDERED: IBUPROFEN 600 MG TABLET. PO ONE (18:45)
--- NOTE | 2021-06-08 18:51 | PHYS DOC ---
Past History Past Medical History: Hypothyroid, Other Additional Past Medical Histor: HEART PALPATIONS Past Surgical History: Appendectomy, Cholecystectomy, Tonsillectomy Smoking: Cigarettes Alcohol Use: None Drug Use: None Adult General Chief Complaint Chief Complaint: ANKLE PROBLEM HPI HPI Patient is a 25-year-old female who presents with right ankle and foot pain after hitting it on the couch, 6 out of 10, sharp in nature. Denies any other injuries. Denies any trouble ambulating, but does cause discomfort. Did not take any medications. Review of Systems Review of Systems Review of systems otherwise unremarkable except noted in HPI Current Medications Current Medications Current Medications Medications (Trade) Dose Ordered Sig/Liseth Start Time Stop Time Status Last Admin Dose Admin Acetaminophen (Tylenol) 1,000 mg 1X ONCE 06/08/21 18:45 06/08/21 18:46 DC 06/08/21 18:45 1,000 MG Ibuprofen (Motrin) 600 mg 1X ONCE 06/08/21 18:45 06/08/21 18:46 DC 06/08/21 18:45 600 MG Allergies Allergies Allergies Coded Allergies Type Severity Reaction Last Updated Verified No Known Drug Allergies 04/25/21 No Physical Exam Physical Exam Constitutional: Well developed, well nourished, no acute distress, non-toxic appearance. [] Skin: Warm, dry, no erythema, no rash. [] Back: No tenderness, no CVA tenderness. [] Extremities: Mild tenderness at medial malleolus, with no obvious swelling or bruising. Neurovascular exam intact. Neurologic: Alert and oriented X 3, no focal deficits noted. [] Psychologic: Affect normal, judgement normal, mood normal. [] Current Patient Data Vital Signs Vital Signs Date Time Temp Pulse Resp B/P (MAP) Pulse Ox O2 Delivery O2 Flow Rate FiO2 06/08/21 17:31 98.1 78 18 108/61 98 Room Air EKG EKG [] Radiology/Procedures Radiology/Procedures [] INDICATION: Reason: Right foot and ankle pain, hit on couch / Spl. Instructions: / History: COMPARISON: None. IMPRESSION: Right ankle: 3 views obtained. Small ossific fragment seen adjacent to the medial malleolus which could be from a small fracture fragment of indeterminate age. Would correlate with symptoms at this site. No evidence of dislocation. Right foot: 3 views obtained. There is some degenerative changes including hypertrophic changes at the first metatarsophalangeal joint with adjacent edema to the soft tissues. No definite additional fracture site. Electronically signed by: Law Mccoy MD (06/08/2021 6:13 PM) [id number] Heart Score C/O Chest Pain: No Risk Factors: Risk Factors: DM, Current or recent (<one month) smoker, HTN, HLP, family history of CAD, obesity. Risk Scores: Risk Factors: DM, Current or recent (<one month) smoker, HTN, HLP, family history of CAD, obesity. Course & Med Decision Making Course & Med Decision Making Patient is a 25-year-old female who presents with ankle pain Vital signs not concerning. Physical exam noted above. Given Tylenol, ice and ice pack Placed in Dereje wrap. Imaging notable for small ossific fragment seen adjacent to the medial malleolus of undetermined age but at the site of tenderness Given crutches. Advised to follow-up in the morning with primary care physician and orthopedic surgery as needed. Return precautions to the ED. Discussed pain management at home. Patient grateful, verbalized understanding agreed with plan of discharge. [] Dragon Disclaimer Dragon Disclaimer This electronic medical record was generated, in whole or in part, using a voice recognition dictation system. Departure Departure: Impression: Primary Impression: Fractured medial malleolus Disposition: 01 HOME / SELF CARE / HOMELESS Condition: GOOD Referrals: PCP,NO (PCP) SHERRY WELLINGTON MD Patient Instructions: Ankle Fracture, RICE - Routine Care for Injuries Additional Instructions: Thank you for coming into the emergency department tonight and allowing us to take care of you. Please read all the attached information carefully to go back over the what we discussed. Please wear your Dereje wrap and use your crutches until you follow-up with your primary care physician and are cleared. You can use Tylenol, ibuprofen and ice as needed. Please come back to the ED with new or concerning symptoms as discussed. If needed, you can call the [facility] orthopedic group at [phone] in the morning to set up a follow-up appointment. YVONNE FIGUEROA MD Jun 08, 2021 18:51
== END 2021-06-08 18:57 | disposition home or self-care (01) ==
LOC: ER 16:44
DX: S82.51XA Displaced fracture of medial malleolus of right tibia, initial encounter for closed fracture (principal); E03.9 Hypothyroidism, unspecified; F17.210 Nicotine dependence, cigarettes, uncomplicated; W22.8XXA Striking against or struck by other objects, initial encounter; Y93.89 Activity, other specified; Y92.89 Other specified places as the place of occurrence of the external cause; Y99.8 Other external cause status
CPT/HCPCS: 73610; 73630; 99284

== ENCOUNTER 2021-11-01 14:12 | Emergency (ER) | payer SELFPAY ==
[~2021-11-01] VITALS: Ht 170.2 cm; Wt 77.3 kg
--- NOTE | 2021-11-01 14:47 | PHYS DOC ---
Past History Past Medical History: Hypothyroid, Other Additional Past Medical Histor: HEART PALPATIONS Past Surgical History: Appendectomy, Cholecystectomy, Tonsillectomy Smoking: Cigarettes Alcohol Use: None Drug Use: None Adult General Chief Complaint Chief Complaint: VAGINAL BLEEDING HPI HPI Patient is a 26-year-old female presenting via POV for vaginal bleeding. Onset was yesterday without any known inciting event, trauma, sexual activity, mechanism of injury or known exposure. Nothing known makes better or worse. Patient describes cramping pain that is focal to suprapubic region. Timing of symptoms has been constant since onset. She has not taken anything for this. She has history of x1 unremarkable spontaneous vaginal otherwise no prior GI nor history or surgeries. She has history of hypothyroidism but admits she does not follow-up in outpatient setting with primary care physician and is on no medications whatsoever. States first day of her last menstrual period was 32 days ago, she states that she should be starting her period at any time. She reports that the pain and cramping is not typical for her menstrual cycle pain. She cannot quantify amount of bleeding, just states it is bright red in nature with some clumps. She has no other concerning symptoms such as lightheadedness, fever, dizziness, syncope, chest pain, shortness of breath, abdominal pain, constipation or diarrhea, no dysuria Review of Systems Review of Systems Fourteen body systems of review of systems have been reviewed. See HPI for pertinent positives and negative responses, other sosa all other systems are negative, non-pertinent or non-contributory Allergies Allergies Allergies Coded Allergies Type Severity Reaction Last Updated Verified No Known Drug Allergies 04/25/21 No Physical Exam Physical Exam Constitutional: Well developed, well nourished, no acute distress, non-toxic appearance. HENT: Normocephalic, atraumatic, bilateral external ears normal, oropharynx moist, no oral exudates, nose normal. Eyes: PERRLA, EOMI, conjunctiva normal, no discharge. Neck: Normal range of motion, no tenderness, supple, no stridor. Cardiovascular: Heart rate regular, sinus rhythm, no murmurs rubs or gallops Lungs & Thorax: Bilateral breath sounds clear to auscultation Abdomen: Bowel sounds normal, soft, no tenderness, no masses, no pulsatile masses. Nonsurgical abdomen, no peritoneal signs Skin: Warm, dry, no erythema, no rash. Back: No tenderness, no CVA tenderness. Extremities: No tenderness, no cyanosis, no clubbing, ROM intact, no edema. Neurologic: Alert and oriented X 3, grossly normal motor & sensory function, no focal deficits noted. Psychologic: Affect normal, judgement normal, mood normal. Current Patient Data Vital Signs Vital Signs Date Time Temp Pulse Resp B/P (MAP) Pulse Ox O2 Delivery O2 Flow Rate FiO2 11/01/21 14:21 98.6 87 16 108/61 (77) 98 Room Air Vital Signs Date Time Temp Pulse Resp B/P (MAP) Pulse Ox O2 Delivery O2 Flow Rate FiO2 11/01/21 15:58 98.6 84 16 110/63 (79) 98 Room Air Lab Results Laboratory Tests Test 11/01/21 14:58 11/01/21 15:12 Urine Collection Type Clean catch Urine Color Yellow Urine Clarity Clear Urine pH 6.0 Urine Specific [place] >=1.030 Urine Protein Neg Urine Glucose (UA) Neg mg/dL Urine Ketones (Stick) Neg mg/dL Urine Blood Large Urine Nitrite Neg Urine Bilirubin Small Urine Urobilinogen Dipstick 0.2 mg/dL Urine Leukocyte Esterase Neg Urine RBC >40 /HPF Urine WBC Occ /HPF Urine Squamous Epithelial Cells Mod /LPF Urine Bacteria 0 /HPF Urine Mucus Mod /LPF Bedside Urine HCG, Qualitative hcg negative EKG EKG [] Radiology/Procedures Radiology/Procedures [] Heart Score C/O Chest Pain: No Risk Factors: Risk Factors: DM, Current or recent (<one month) smoker, HTN, HLP, family h istory of CAD, obesity. Risk Scores: Risk Factors: DM, Current or recent (<one month) smoker, HTN, HLP, family history of CAD, obesity. Course & Med Decision Making Course & Med Decision Making ABCs unremarkable HPI physical exam and comprehensive ER work-up nonconcerning for any emergent or surgical issues I discussed most likely diagnosis of PMS and patient who is likely starting her period. IM Toradol administered after joint decision to do this with improvement in symptoms. Subsequent supportive care practices advised I did recommend pelvic exam and further examination on this but patient deferred stating she had good access to PCP and [facility] [employer] [facility] in outpatient setting. I advised her to follow-up as she needs to have her thyroid rechecked with consideration for nonemergent outpatient pelvic ultrasound Dutch Disclaimer Dragon Disclaimer This electronic medical record was generated, in whole or in part, using a voice recognition dictation system. Departure Departure: Impression: Primary Impression: Vaginal bleeding Disposition: HOME / SELF CARE / HOMELESS Condition: STABLE Referrals: PCP,JACQUELINE (PCP) Additional Instructions: You were seen for vaginal bleeding. While the etiology of your bleeding is not precisely known at this time, further studies are needed to find the answer to this issue. The [facility] doctors want to see you in the clinic. You may be starting your period. You need to be seen for continuity of care in outpatient setting for management of your history of low thyroid disease in addition to continued work-up for issue today. An outpatient pelvic ultrasound might be indicated. You need to return to the ED immediately if you develop worsening pain, heavy vaginal bleeding, chest pain, shortness of breath, excessive fatigue, lightheadedness, or any other new or concerning symptoms. JASON POTTS DO Nov 01, 2021 14:47
[2021-11-01 15:39] LABS: BACTERIA,URINE 0 /HPF (0-FEW); BILIRUBIN,URINE SMALL (NEG); CLARITY,URINE CLEAR; COLOR,URINE YELLOW; GLUCOSE,URINE NEG (NEG); NITRITE,URINE NEG (NEG); RBC,URINE >40 /HPF (0-2); SQUAMOUS EPITHELIAL CELL,UR MOD /LPF; UROBILINOGEN,URINE 0.2 mg/dL (0.2 mg/dL); WBC,URINE OCC /HPF (0-4)
[2021-11-01 15:58] VITALS: BP 110/63
[2021-11-01] MEDS ORDERED: KETOROLAC 60 MG/2 ML VIAL. IM ONE (16:00)
== END 2021-11-01 15:58 | disposition home or self-care (01) ==
LOC: ER 14:12
DX: N93.8 Other specified abnormal uterine and vaginal bleeding (principal); R10.30 Lower abdominal pain, unspecified; E03.9 Hypothyroidism, unspecified; F17.210 Nicotine dependence, cigarettes, uncomplicated; Z90.89 Acquired absence of other organs; Z90.49 Acquired absence of other specified parts of digestive tract
CPT/HCPCS: 81001; 81025; 96372; 99283; J1885